=== PATIENT | female | born 1980 | race African-American/Black ===

== ENCOUNTER 2022-05-26 20:22 | Inpatient (IN) | payer BC ==
[~2022-05-26] VITALS: Ht 165.1 cm; Wt 69.4 kg
[2022-05-26] MEDS ORDERED: ONDANSETRON HCL INJ 2MG/ML 2ML 2 MG/ML VIAL IV STA (20:57)
[2022-05-26] MEDS ORDERED: SODIUM CHLORIDE FLUSH 10 ML SYR INJ PRN (21:00)
[2022-05-26] MEDS ORDERED: ASPIRIN 81 MG CHEW TAB PO ONE (21:00)
[2022-05-26] MEDS ORDERED: ASPIRIN 325 MG TAB PO ONE (21:00)
[2022-05-26] MEDS ORDERED: Morphine 2mg Syringe 2 MG/ML SYR IV ONE (21:00)
[2022-05-26] MEDS ORDERED: ONDANSETRON HCL INJ 2MG/ML 2ML 2 MG/ML VIAL IV PRN (21:00)
[2022-05-26] MEDS ORDERED: ASPIRIN 81 MG CHEW TAB ONE (22:00)
[2022-05-26] MEDS ORDERED: ONDANSETRON HCL INJ 2MG/ML 2ML 2 MG/ML VIAL ONE (22:00)
[2022-05-26] MEDS ORDERED: Morphine 4mg INJECTION 4 MG/ML INJ ONE (22:01)
[2022-05-27] VITALS (9 sets, daily range): BP systolic 107–136; BP diastolic 64–85
[2022-05-27] MEDS ORDERED: ATORVASTATIN CA80 MG PO (01:00)
[2022-05-27] MEDS ORDERED: ISOSORBIDE MONO30 MG PO (01:00)
[2022-05-27] MEDS ORDERED: METOPROLOL SUCC25 MG PO (01:00)
[2022-05-27] MEDS ORDERED: TRESIBA FL100 UNIT/1 SQ (01:00)
[2022-05-27] MEDS ORDERED: LYUMJEV KW100 UNIT/1 SQ (01:01)
[2022-05-27] MEDS ORDERED: PLAVIX75 MG PO (01:04)
[2022-05-27] MEDS ORDERED: LISINOPRIL10 MG PO (01:04)
[2022-05-27] MEDS ORDERED: ASPIRIN81 MG PO (01:04)
[2022-05-27 06:18] LABS: BASOPHILS % 0.6 % (0.0-1.0); EOSINOPHILS # (AUTO) 0.3 (0.0-0.4); EOSINOPHILS % 3.7 % (0.0-6.0); HEMATOCRIT 37.8 % (34.2-44.1); HEMOGLOBIN 12.2 g/dL (12.0-16.0); LYMPHOCYTES # (AUTO) 3.2 (1.0-3.2); LYMPHOCYTES % 45.5 % (18.0-39.1); MEAN CORPUSCULAR HEMOGLOBIN 31.3 pg (28-32); MEAN CORPUSCULAR HGB CONC 32.3 g/dL (31-35); MEAN CORPUSCULAR VOLUME 96.9 fL (81-99); MONOCYTES # (AUTO) 0.6 (0.2-0.8); MONOCYTES % 9.1 % (4.4-11.3); NEUTROPHILS # (AUTO) 2.9 (2.1-6.9); NEUTROPHILS % 40.8 % (38.7-80.0); PLATELET COUNT 308 x10e3/uL (140-360); RED CELL DISTRIBUTION WIDTH 12.3 % (11.7-14.4)
[2022-05-27 06:44] LABS: CREATINE KINASE MB 1.5 ng/mL (0-5.0)
[2022-05-27 08:30] LABS: ANION GAP 16.7 mmol/L (8-16); CREATININE, SERUM 0.85 mg/dL (0.57-1.11); POTASSIUM 3.7 mmol/L (3.5-5.1)
[2022-05-27] MEDS ORDERED: TRAMADOL HCL 50 MG TAB PO PRN (09:30)
[2022-05-27] MEDS ORDERED: Morphine 2mg Syringe 2 MG/ML SYR IV PRN (09:30)
[2022-05-27] MEDS: INSULIN LISPRO 100 UNIT/1 ML 3ML VIAL SQ SCH ×4 (09:30→21:00)
[2022-05-27] MEDS: ISOSORBIDE MONONITRATE 30 MG TAB CR PO SCH (09:41)
[2022-05-27] MEDS: ASPIRIN 81 MG CHEW TAB PO SCH (09:41)
[2022-05-27] MEDS: CLOPIDOGREL BISULFATE 75 MG TAB PO SCH (09:42)
[2022-05-27] MEDS ORDERED: METOPROLOL TARTRATE INJ 1 MG/ML VIAL IV PRN (13:00)
[2022-05-27] MEDS ORDERED: HYDROMORPHONE 1MG/1ML INJ IV PRN (13:00)
[2022-05-27] MEDS ORDERED: ACETAMINOPHEN 325 MG TAB PO PRN (13:00)
[2022-05-27] MEDS ORDERED: HYDROCODONE/APAP 7.5MG-325MG 1 EA TAB PO PRN (13:00)
[2022-05-27] MEDS ORDERED: POLYETHYLENE GLYCOL 3350 17 GM PACK PO PRN (13:00)
[2022-05-27] MEDS: DEXTROSE 50% SYRINGE 50 ML IV PRN ×2 (13:02→18:45)
[2022-05-27] MEDS ORDERED: ONDANSETRON HCL 4 MG ORAL DISINTEGRATING TAB PO PRN (15:15)
[2022-05-27 16:40] LABS: CREATINE KINASE 88 IU/L (29-168)
[2022-05-27] MEDS ORDERED: DOCUSATE SODIUM 100 MG CAP PO SCH (17:00)
[2022-05-27] MEDS: FAMOTIDINE 20 MG TAB PO SCH (17:20)
[2022-05-27] MEDS ORDERED: LISINOPRIL 20 MG TAB PO SCH (21:00)
[2022-05-27] MEDS ORDERED: ATORVASTATIN 40 MG TAB PO SCH (21:00)
[2022-05-27] MEDS ORDERED: METOPROLOL SUCCINATE 25 MG TAB XL PO SCH (21:00)
[2022-05-27] MEDS: DOCUSATE SODIUM 100 MG CAP PO SCH (21:40)
[2022-05-28 04:05] VITALS: BP 100/63
[2022-05-28 06:18] LABS: BASOPHILS % 0.5 % (0.0-1.0); EOSINOPHILS # (AUTO) 0.2 (0.0-0.4); EOSINOPHILS % 1.8 % (0.0-6.0); HEMATOCRIT 37.1 % (34.2-44.1); HEMOGLOBIN 12.3 g/dL (12.0-16.0); LYMPHOCYTES # (AUTO) 2.3 (1.0-3.2); LYMPHOCYTES % 27.9 % (18.0-39.1); MEAN CORPUSCULAR HEMOGLOBIN 31.5 pg (28-32); MEAN CORPUSCULAR HGB CONC 33.2 g/dL (31-35); MEAN CORPUSCULAR VOLUME 94.9 fL (81-99); MONOCYTES # (AUTO) 0.6 (0.2-0.8); NEUTROPHILS # (AUTO) 5.2 (2.1-6.9); NEUTROPHILS % 62.6 % (38.7-80.0); PLATELET COUNT 308 x10e3/uL (140-360); RED BLOOD COUNT 3.91 x10e6/uL (3.6-5.1); RED CELL DISTRIBUTION WIDTH 12.1 % (11.7-14.4)
[2022-05-28 06:40] LABS: ALBUMIN 3.4 g/dL (3.5-5.0); ALBUMIN/GLOBULIN RATIO 1.1 (0.8-2.0); ANION GAP 14.1 mmol/L (8-16); CALCIUM 9.1 mg/dL (8.4-10.2); CHOL/HDL RATIO 2.8 (3.0-3.6); CREATININE, SERUM 0.82 mg/dL (0.57-1.11); MAGNESIUM 1.9 MG/DL (1.3-2.1); PHOSPHORUS 3.5 MG/DL (2.3-4.7); POTASSIUM 4.1 mmol/L (3.5-5.1)
[2022-05-28 07:02] LABS: THYROID STIMULATING HORMONE 0.383 uIU/mL (0.350-4.940)
[2022-05-28 07:23] LABS: CREATINE KINASE 77 IU/L (29-168)
[2022-05-28 08:27] VITALS: BP 124/75
[2022-05-28 09:00] VITALS: BP 124/75
[2022-05-28] MEDS: ASPIRIN 81 MG CHEW TAB PO SCH (10:02)
[2022-05-28] MEDS: DOCUSATE SODIUM 100 MG CAP PO SCH (10:03)
[2022-05-28] MEDS: ISOSORBIDE MONONITRATE 30 MG TAB CR PO SCH (10:03)
[2022-05-28] MEDS: FAMOTIDINE 20 MG TAB PO SCH ×2 (10:03→17:39)
[2022-05-28] MEDS: CLOPIDOGREL BISULFATE 75 MG TAB PO SCH (10:03)
[2022-05-28] MEDS: INSULIN LISPRO 100 UNIT/1 ML 3ML VIAL SQ SCH ×3 (10:09→16:30)
[2022-05-28] MEDS ORDERED: SODIUM CHLORIDE 0.9% 100 ML ONE (11:22)
[2022-05-28] MEDS ORDERED: IOPAMIDOL 370 MG/ML 100 ML INFUS..BTL INJ ONE (11:22)
[2022-05-28 12:00] VITALS: BP 78/58
[2022-05-28 18:00] VITALS: BP 115/72
[2022-05-28 18:12] VITALS: BP 115/72
== END 2022-05-28 18:22 | disposition home or self-care (01) | DRG 552 ==
LOC: FSED 20:34 → ERHOLD 21:01 → MED/SURG3 23:49 → OBSVTOIN 05-28 13:08
PROVIDERS: ADMIT Internal Medicine; ATTEND Internal Medicine
DX: M62.830 Muscle spasm of back (principal); G43.909 Migraine, unspecified, not intractable, without status migrainosus; F17.210 Nicotine dependence, cigarettes, uncomplicated; E11.9 Type 2 diabetes mellitus without complications; I25.10 Atherosclerotic heart disease of native coronary artery without angina pectoris; F31.9 Bipolar disorder, unspecified; Z20.822 Contact with and (suspected) exposure to COVID-19; Z79.899 Other long term (current) drug therapy; E11.65 Type 2 diabetes mellitus with hyperglycemia; Z79.4 Long term (current) use of insulin; Z95.5 Presence of coronary angioplasty implant and graft
CPT/HCPCS: 36415; 70450; 70496; 70498; 71045; 72126; 80048; 80053; 80061; 82550; 82553; 82948; 83036; 83735; 84100; 84443; 84484; 85025; 93005; 93306; 94799; 95819; 99284; G0378; J1170; J2270; J2405; J7050; J7799; Q9967